=== PATIENT | female | born 1985 | race African-American/Black ===

== ENCOUNTER 2017-04-12 05:31 | Emergency (ER) | payer MEDICAID ==
[~2017-04-12] VITALS: Ht 172.7 cm; Wt 69.0 kg
[2017-04-12] MEDS ORDERED: METHYLPREDNISOLONE SOD SUCC 125 MG/2 ML VIAL IV ONE (06:30)
[2017-04-12] MEDS ORDERED: ACETAMINOPHEN WITH CODEINE 300/30MG TABLET PO ONE (06:30)
[2017-04-12] MEDS ORDERED: FAMOTIDINE 20MG/2ML VIAL IV ONE (06:30)
[2017-04-12] MEDS ORDERED: DIPHENHYDRAMINE 50MG/ML VIAL IV ONE (06:30)
[2017-04-12 09:02] VITALS: BP 107/53
== END 2017-04-12 09:05 | disposition home or self-care (01) ==
LOC: ER 05:31
DX: T78.40XA Allergy, unspecified, initial encounter (principal); I10 Essential (primary) hypertension; E05.90 Thyrotoxicosis, unspecified without thyrotoxic crisis or storm; Z88.0 Allergy status to penicillin; X58.XXXA Exposure to other specified factors, initial encounter; Y93.89 Activity, other specified; Y92.89 Other specified places as the place of occurrence of the external cause; Y99.8 Other external cause status
CPT/HCPCS: 96374; 96375; 99284; J1200; J2930; J3490; Z7610